=== PATIENT | male | born 1970 | race American Indian/Alaskan Native ===

== ENCOUNTER 2017-10-05 20:23 | Emergency (ER) | payer OTHER ==
[2017-10-05 20:37] VITALS: BP 165/100
[2017-10-05] MEDS ORDERED: MOTRIN PO ONE (21:27)
--- NOTE | 2017-10-05 22:16 | XRay Report ---
FINAL REPORT EXAM: XR SPINE CERVICAL 2-3V HISTORY: cervical pain TECHNIQUE: AP, lateral, and odontoid views of the cervical spine PRIORS: None. FINDINGS: The vertebral body heights and disc spaces are well maintained. Straightening of the cervical curvature is noted which may be due to muscle spasm.. No prevertebral soft tissue swelling is seen. The odontoid is intact. Degenerative disc narrowing is present from C3 through C6. IMPRESSION: No acute bony abnormality in the cervical spine. Straightening of the cervical curvature which may be due to muscle spasm.
--- NOTE | 2017-10-05 22:29 | XRay Report ---
FINAL REPORT EXAM: XR SPINE LUMBOSACRAL 2-3V HISTORY: lumbar pain TECHNIQUE: AP, lateral and coned-down standing views of the lumbar spine PRIORS: None. FINDINGS: The vertebral body heights and disc spaces are well maintained. The alignment is normal. No evidence for spondylolysis or spondylolisthesis is seen. Pedicles are intact bilaterally at all levels. The paraspinal soft tissues are unremarkable. IMPRESSION: Normal lumbar spine. Is
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
== END 2017-10-05 22:54 | disposition home or self-care (01) ==
LOC: ED 20:23
DX: S93.401A Sprain of unspecified ligament of right ankle, initial encounter (principal); S13.4XXA Sprain of ligaments of cervical spine, initial encounter; S39.012A Strain of muscle, fascia and tendon of lower back, initial encounter; V89.2XXA Person injured in unspecified motor-vehicle accident, traffic, initial encounter; Y93.89 Activity, other specified; Y92.89 Other specified places as the place of occurrence of the external cause; Y99.8 Other external cause status
CPT/HCPCS: 72040; 72100; 99283